=== PATIENT | female | born 1955 | race Caucasian/White ===

== ENCOUNTER 2021-08-19 11:53 | Observation (INO) ==
[2021-08-19 12:00] VITALS: BMI 24.0
[2021-08-19] MEDS ORDERED: NS 1,000 ML IV 1,000 ML IV ONE (13:14)
--- NOTE | 2021-08-19 13:14 | DR.NAUSEAF ---
HPI Time Seen Time Seen by Provider: 08/19/21 13:11 Primary Care Physician Primary Care Physician: DR MONAE Complaints Chief Complaint Doctors Comments: 66 y/o female ill over the past week. + nausea, vomiting, diarrhea. Also with cough, productive of bloody mucous, running low grade temp. Denies abdominal pain. No dizziness or weakness. + smokes. Chief Complaint:: PT C/O 1 WEEK OF FEVER, NAUSEA AND VOMITING, AND STARTED HAVING DIARRHEA TODAY.PT ALSO C/O PRODUCTIVE COUGH WITH BLOODY MUCUS. COVID-19 Coronavirus risk:travel/contact w/high risk person: No Has patient experienced Coronavirus symptoms: Yes Coronavirus symptoms experienced: Fever, Coughing and Shortness of Breath Reviewed Nurses Notes Reviewed: Yes Source History Provided: Patient Mode of Arrival Mode of Arrival: Ambulatory Timing Onset of Chief Complaint: 08/19/21 PMH PMH Past Medical History: Yes Past Medical History Comment: BRAIN ANEURYSM Past Surgical History: Yes Surgical History: Hysterectomy Past Surgical History Comment: STENTS AND COILS X 13 IN BRAIN, CRAINIOTOMY, LANDON L SURGERY Family History History of Family Medical Conditions: Yes Family Medical History: Diabetes Mellitus, Cancer, [place], Coronary Artery Disease and Hypertension Social History Does patient currently use any type of tobacco product: Yes Have you used tobacco products in the last 12 months: Yes Type of Tobacco Use: Cigarettes Does any household member use tobacco: No Alcohol Use: None Do you use any recreational Drugs:: No Lives With: Family Lives Where: Home Travel Risk Coronavirus risk:travel/contact w/high risk person: No Has patient experienced Coronavirus symptoms: Yes Coronavirus symptoms experienced: Fever, Coughing and Shortness of Breath Infectious screening In the last 2 months have you had wt loss of >10#?: NO Have you had fever, night sweats or hemotysis?: No Have you traveled outside the country in the last 6 months?: No Isolation: Droplet ROS Review of Systems Constitutional: Fever Eyes: No Symptoms Reported ENTM: No Symptoms Reported Respiratoy: Productive Cough Cardiovascular: No Symptoms Reported Gastrointestinal/Abdominal: Constipation, Diarrhea and Nausea Genitourinary: No Symptoms Reported Neurological: No Symptoms Reported Musculoskeletal: No Symptoms Reported Integumentary: No Symptoms Reported Hematologic/Lymphatic: No Symptoms Reported Psychiatric: No Symptoms Reported All Other Systems: Reviewed and Negative PE Vital Signs Vitals: Temperature 99.0 F Pulse Rate 81 Respiratory Rate 18 Blood Pressure 137/67 O2 Sat by Pulse Oximetry 91 General Limitations: No Limitations General Appearance: Alert and In No Apparent Distress Head Head Exam: Normal Inspection Eyes Eye exam: Normal Appearance, PERRL and EOMI ENT ENT Exam: Normal Exam Neck Neck Exam: Normal Inspection and Full ROM Chest Chest Inspection: Normal Inspection Respiratory Respiratory Exam: Normal Lung Sounds Bilat; negative Accessory Muscle Use and Respiratory Distress Respiratory Exam: Bilateral: Clear to Auscultation Cardiovascular Cardiovascular Exam: Regular Rate, Normal Rhythm and Normal Heart Sounds Abdominal Exam Abdominal Exam: Normal Inspection, Normal Bowel Sounds and Soft; negative Tenderness, Guarding and Rebound Extremities Extremities Exam: Normal Inspection and Full ROM; negative Edema Back Back Exam: Tenderness (parathoracic muscles) Neurologic Neurological Exam: Alert, Oriented X3 and CN II-XII Intact; negative Motor Sensory Deficit Psychiatric Psychiatric Exam: Normal Affect Skin Skin Exam: Warm and Dry MDM Differential Diagnosis Differential Diagnosis: Considerations may Include:: Gastroenteritis, Pancreatitis and Urinary Tract Infection Differential Diagnosis Comment: viral illness, covid. COURSE Treatment Treatment: Ill past week - N/V, diarrhea and cough. + smokes. W/u initiated. 1700 - CXR with RLL pneumonia changes, potassium low at 2.4. Pt was given IV mo rphine x 2. Given IV azithromycin. Recommend admission for further potassium replacement, IV antibiotics in view of N/V. Dr Soler accetped the admission. ROR Labs Reviewed Laboratory Results Reviewed?: Yes Result Diagrams: 08/19/21 13:35 08/19/21 13:35 Laboratory: WBC 13.6 X10^3/uL (3.6-10.0) H 08/19/21 13:35 RBC 4.00 X10^6/uL (3.5-5.4) 08/19/21 13:35 Hgb 12.9 g/dL (12.0-16.0) 08/19/21 13:35 Hct 37.2 % (36.0-47.0) 08/19/21 13:35 MCV 93.0 fL (80.0-100.0) 08/19/21 13:35 MCH 32.3 pg (27.0-34.0) 08/19/21 13:35 MCHC 34.7 g/dL (33.0-35.0) 08/19/21 13:35 RDW 13.6 % (11.6-16.5) 08/19/21 13:35 Plt Count 419 X10^3/uL (150.0-450.0) 08/19/21 13:35 MPV 7.3 fL (7.4-11.0) L 08/19/21 13:35 Neut % (Auto) 84.6 % (42.0-75.0) H 08/19/21 13:35 Lymph % (Auto) 10.0 % (21.0-51.0) L 08/19/21 13:35 [place] % (Auto) 4.8 % (0.0-13.0) 08/19/21 13:35 Eos % (Auto) 0.1 % (0.9-2.9) L 08/19/21 13:35 Baso % (Auto) 0.5 % (0.2-1.0) 08/19/21 13:35 Neut # (Auto) 11.5 x10^3/uL (2.2-4.8) H 08/19/21 13:35 Lymph # (Auto) 1.4 X10^3/uL (1.3-2.9) 08/19/21 13:35 [place] # (Auto) 0.7 x10^3/uL (0.3-0.8) 08/19/21 13:35 Eos # (Auto) 0.0 x10^3/uL (0.0-0.2) 08/19/21 13:35 Baso # (Auto) 0.1 X10^3/uL (0.0-0.1) 08/19/21 13:35 Absolute Nucleated RBC 0.0 /100WBC 08/19/21 13:35 Sodium 139 mmol/L (136-145) 08/19/21 13:35 Corrected Sodium TNP 08/19/21 13:35 Potassium 2.4 mmol/L (3.5-5.1) L* 08/19/21 13:35 Chloride 97 mmol/L (98-107) L 08/19/21 13:35 Carbon Dioxide 33.1 mmol/L (21-32) H 08/19/21 13:35 BUN 6 mg/dL (7-18) L 08/19/21 13:35 Creatinine 0.73 mg/dL (0.55-1.02) 08/19/21 13:35 Est GFR (MDRD) Af Amer > 60 (>60) 08/19/21 13:35 Est GFR (MDRD) Non-Af > 60 (>60) 08/19/21 13:35 Glucose 102 mg/dL (65-99) H 08/19/21 13:35 Calcium 8.9 mg/dL (8.5-10.1) 08/19/21 13:35 Corrected Calcium 10.2 mg/dL (8.5-10.1) H 08/19/21 13:35 Total Bilirubin 0.50 mg/dL (0.2-1.0) 08/19/21 13:35 AST 18 Units/L (15-37) 08/19/21 13:35 ALT 21 Units/L (12-78) 08/19/21 13:35 Alkaline Phosphatase 59 Units/L (46-116) 08/19/21 13:35 Creatine Kinase 72 Units/L (26-192) 08/19/21 13:35 CK-MB (CK-2) < 1.0 ng/mL (0-4.0) 08/19/21 13:35 CK/CKMB % Calc 1.4 % (<4) 08/19/21 13:35 Troponin I < 0.02 ng/mL (0-1.5) 08/19/21 13:35 Total Protein 8.5 g/dL (6.4-8.2) H 08/19/21 13:35 Albumin 2.4 g/dL (3.4-5.0) L 08/19/21 13:35 Globulin 6.1 g/dL (2.5-4.5) H 08/19/21 13:35 Albumin/Globulin Ratio 0.4 Ratio (1.1-2.1) L 08/19/21 13:35 Lipase 95 Units/L (73-393) 08/19/21 13:35 Specimen Type Clean catch urine 08/19/21 14:48 Urine Color Straw (YELLOW) 08/19/21 14:48 Urine Appearance Clear (CLEAR) 08/19/21 14:48 Urine pH 8.0 (5.0 - 8.0) 08/19/21 14:48 Ur Specific [place] 1.015 (1.000-1.030) 08/19/21 14:48 Urine Protein Negative (NEGATIVE) 08/19/21 14:48 Urine Glucose (UA) Negative (NEGATIVE) 08/19/21 14:48 Urine Ketones Negative (NEGATIVE) 08/19/21 14:48 Urine Occult Blood 1+ (NEGATIVE) 08/19/21 14:48 Urine Nitrite Negative (NEGATIVE) 08/19/21 14:48 Urine Bilirubin Negative (NEGATIVE) 08/19/21 14:48 Urine Urobilinogen Normal (NORMAL) 08/19/21 14:48 Ur Leukocyte Esterase Negative (NEGATIVE) 08/19/21 14:48 Urine RBC 0-2 /HPF (0-3) 08/19/21 14:48 Urine WBC 0-2 /HPF (0-5) 08/19/21 14:48 Ur Squamous Epith Cells Moderate /HPF (NEGATIVE) 08/19/21 14:48 Urine Bacteria Trace /HPF (NEGATIVE) 08/19/21 14:48 Ur Culture Indicated? No/not indicated 08/19/21 14:48 SARS-CoV-2 (PCR) Negative (NEGATIVE) 08/19/21 13:55 Influenza Type A (PCR) Negative (NEGATIVE) 08/19/21 13:55 Influenza Type B (PCR) Negative (NEGATIVE) 08/19/21 13:55 RSV (PCR) Negative (NEGATIVE) 08/19/21 13:55 Other Results Comments: K 2.4 XRAY XRAY Interpreted by: Both X-ray Results: Concerning for RLL infiltrate. Opioid Opioid Risk Tool Age (Dami box if 16-45): No History of Preadolescent Sexual Abuse: No Total: 0 Total Score Risk Category: Low Risk Copyright: Ayan ARNOLD predicting aberrant behaviors Diagnosis Discharge Problem: Acute hypokalemia RLL pneumonia Qualifiers: Pneumonia type: due to unspecified organism Qualified Code(s): J18.9 - Pneumonia, unspecified organism
[2021-08-19] MEDS ORDERED: ZOFRAN INJ 4 MG VIAL IVP ONE (13:15)
[2021-08-19] MEDS ORDERED: ZOFRAN INJ 4 MG VIAL ONE (13:38)
[2021-08-19 13:48] LABS: BASOPHILS # (AUTO) 0.1 X10^3/uL (0.0-0.1); BASOPHILS % (AUTO) 0.5 % (0.2-1.0); EOSINOPHILS % (AUTO) 0.1 % (0.9-2.9); HEMATOCRIT 37.2 % (36.0-47.0); HEMOGLOBIN 12.9 g/dL (12.0-16.0); LYMPHOCYTES # (AUTO) 1.4 X10^3/uL (1.3-2.9); MEAN CORPUSCULAR HEMOGLOBIN 32.3 pg (27.0-34.0); MEAN CORPUSCULAR HGB CONC 34.7 g/dL (33.0-35.0); MEAN PLATELET VOLUME 7.3 fL (7.4-11.0); MONOCYTES # (AUTO) 0.7 x10^3/uL (0.3-0.8); MONOCYTES % (AUTO) 4.8 % (0.0-13.0); NEUTROPHILS # (AUTO) 11.5 x10^3/uL (2.2-4.8); NEUTROPHILS % (AUTO) 84.6 % (42.0-75.0); PLATELET COUNT 419 X10^3/uL (150.0-450.0); RED CELL DISTRIBUTION WIDTH 13.6 % (11.6-16.5); WHITE BLOOD COUNT 13.6 X10^3/uL (3.6-10.0)
[2021-08-19] MEDS ORDERED: MORPHINE SULFATE INJ 4 MG IVP ONE ×2 (14:01→16:42)
[2021-08-19] MEDS ORDERED: MORPHINE SULFATE INJ 4 MG ONE ×2 (14:08→16:46)
[2021-08-19 14:10] LABS: ALANINE AMINOTRANSFERASE 21 Units/L (12-78); ALBUMIN 2.4 g/dL (3.4-5.0); ALKALINE PHOSPHATASE 59 Units/L (46-116); ASPARTATE AMINO TRANSFERASE 18 Units/L (15-37); BLOOD UREA NITROGEN 6 mg/dL (7-18); CALCIUM 8.9 mg/dL (8.5-10.1); CARBON DIOXIDE 33.1 mmol/L (21-32); CHLORIDE 97 mmol/L (98-107); CKMB % 1.4 % (<4); COR CA(FOR HYPOALB) 10.2 mg/dL (8.5-10.1); CREATINE KINASE 72 Units/L (26-192); CREATINE KINASE MB < 1.0 ng/mL (0-4.0); CREATININE 0.73 mg/dL (0.55-1.02); LIPASE 95 Units/L (73-393); SODIUM 139 mmol/L (136-145); TOTAL PROTEIN 8.5 g/dL (6.4-8.2); TROPONIN I < 0.02 ng/mL (0-1.5); eGFR NON BLACK RACES > 60 (>60)
[2021-08-19 14:56] LABS: BILIRUBIN,URINE NEGATIVE (NEGATIVE); BLOOD/HEMOGLOBIN,URINE 1+ (NEGATIVE); GLUCOSE, URINE NEGATIVE (NEGATIVE); KETONES,URINE NEGATIVE (NEGATIVE); LEUKOCYTE ESTERASE ,URINE NEGATIVE (NEGATIVE); NITRITES,URINE NEGATIVE (NEGATIVE); PROTEIN,URINE NEGATIVE (NEGATIVE); UROBILINOGEN,URINE NORMAL (NORMAL)
[2021-08-19 15:02] LABS: APPEARANCE,URINE CLEAR (CLEAR); COLOR,URINE STRAW (YELLOW)
[2021-08-19 15:03] LABS: BACTERIA,URINE TRACE /HPF (NEGATIVE); RBC,URINE 0-2 /HPF (0-3); SQUAMOUS EPITHELIAL CELL,UR MODERATE /HPF (NEGATIVE)
--- NOTE | 2021-08-19 15:39 | RAD ---
HISTORYNAUSEA, VOMITING, COUGH BRAIN ANEURYSM, STENTS AND COILS X 13, CRAINEOTOMY, BOWEL, HTNSTUDYCHEST, 1 VIEWCOMPARISONNoneFINDINGSThe trachea is midline. The cardiac silhouette is unremarkable. There is an alveolar infiltrate in the right lung base consistent with pneumonia. The remainder the lungs are clear. The bony thorax is unremarkable other than lower C-spine ACDF.IMPRESSIONAlveolar infiltrate right costophrenic angle consistent with pneumonia. Recommend radiographic follow-up.Electronically signed by: BALDEV LYNNE (Aug 19, 2021 15:38:19)
[2021-08-19] MEDS ORDERED: K-RIDER 10 MEQ/NS 100 ML 10 MEQ/100 ML BAG IV ONE ×2 (16:42→16:46)
[2021-08-19] MEDS ORDERED: POTASSIUM CHLORIDE LIQ 20 MEQ UDC PO ONE (16:42)
[2021-08-19] MEDS ORDERED: POTASSIUM CHLORIDE LIQ 20 MEQ UDC ONE (17:21)
[2021-08-19] MEDS ORDERED: KLOR-CON PO PRN (19:19)
[2021-08-19] MEDS ORDERED: POTASSIUM CHL 60 MEQ/NS 0.45% 500 ML IV PRN (19:19)
[2021-08-19] MEDS ORDERED: K-RIDER 10 MEQ/NS 100 ML 10 MEQ/100 ML BAG IV PRN (19:19)
[2021-08-19] MEDS ORDERED: MICRO K EXTEN CAP 10 MEQ PO PRN (19:19)
[2021-08-19] MEDS ORDERED: MAGNESIUM SULFATE 1 GRAM/100 mL PREMIX 1 G/100 ML BAG IV PRN (19:19)
[2021-08-19] MEDS ORDERED: POTASSIUM CHLORIDE LIQ 20 MEQ UDC PO PRN (19:19)
[2021-08-19] MEDS ORDERED: POTASSIUM CHL 40 MEQ/NS 0.45% 500 ML IV PRN (19:19)
[2021-08-19] MEDS: ZITHROMAX INJ 500 MG VIAL 500 MG in NS 250 ML IV 250 ML IV SCH (20:15)
[2021-08-19] MEDS: PULMICORT NEB TX 0.5 MG NEB SCH (20:35)
[2021-08-19] MEDS: DUONEB 0.5 MG/3 MG (3 mL) NEB SCH (20:35)
[2021-08-19] MEDS: MORPHINE SULFATE INJ 4 MG IVP PRN (21:02)
[2021-08-19] MEDS: K-DUR TAB 20 MEQ PO PRN (21:56)
[2021-08-20] MEDS: MORPHINE SULFATE INJ 4 MG IVP PRN ×5 (00:55→19:26)
[2021-08-20 05:22] LABS: BASOPHILS # (AUTO) 0.1 X10^3/uL (0.0-0.1); BASOPHILS % (AUTO) 0.6 % (0.2-1.0); EOSINOPHILS # (AUTO) 0.1 x10^3/uL (0.0-0.2); EOSINOPHILS % (AUTO) 1.1 % (0.9-2.9); HEMATOCRIT 33.6 % (36.0-47.0); HEMOGLOBIN 11.5 g/dL (12.0-16.0); LYMPHOCYTES # (AUTO) 1.5 X10^3/uL (1.3-2.9); MEAN CORPUSCULAR HEMOGLOBIN 32.1 pg (27.0-34.0); MEAN CORPUSCULAR HGB CONC 34.1 g/dL (33.0-35.0); MEAN CORPUSCULAR VOLUME 94.2 fL (80.0-100.0); MEAN PLATELET VOLUME 7.4 fL (7.4-11.0); MONOCYTES # (AUTO) 0.7 x10^3/uL (0.3-0.8); MONOCYTES % (AUTO) 7.1 % (0.0-13.0); NEUTROPHILS # (AUTO) 7.7 x10^3/uL (2.2-4.8); NEUTROPHILS % (AUTO) 76.2 % (42.0-75.0); PLATELET COUNT 370 X10^3/uL (150.0-450.0); RED BLOOD COUNT 3.57 X10^6/uL (3.5-5.4); RED CELL DISTRIBUTION WIDTH 13.6 % (11.6-16.5); WHITE BLOOD COUNT 10.1 X10^3/uL (3.6-10.0)
[2021-08-20 05:51] LABS: ALANINE AMINOTRANSFERASE 18 Units/L (12-78); ALBUMIN 1.9 g/dL (3.4-5.0); ALKALINE PHOSPHATASE 47 Units/L (46-116); ASPARTATE AMINO TRANSFERASE 19 Units/L (15-37); BLOOD UREA NITROGEN 5 mg/dL (7-18); CALCIUM 8.1 mg/dL (8.5-10.1); CARBON DIOXIDE 30.5 mmol/L (21-32); CHLORIDE 102 mmol/L (98-107); COR CA(FOR HYPOALB) 9.8 mg/dL (8.5-10.1); COR NA(FOR HYPERGLY) 141 mmol/L (136-145); CREATININE 0.78 mg/dL (0.55-1.02); MAGNESIUM 2.3 mg/dL (1.7-2.9); SODIUM 140 mmol/L (136-145); TOTAL PROTEIN 7.2 g/dL (6.4-8.2); eGFR NON BLACK RACES > 60 (>60)
[2021-08-20] MEDS: K-DUR TAB 20 MEQ PO PRN ×2 (06:12→16:33)
--- NOTE | 2021-08-20 07:49 | RAD ---
HISTORYPneumoniaSTUDYAP [id number] ent and stable airspace disease right lower lobe. Heart and lungs normal and unchanged otherwise. No new abnormality identified.IMPRESSIONFindings remain consistent with a right lower lobe pneumonia. No change.Electronically signed by: FRENCH PARDO (Aug 20, 2021 07:48:13)
[2021-08-20] MEDS ORDERED: TUSSIONEX PENNKINETIC SUSP PO PRN (07:54)
--- NOTE | 2021-08-20 08:59 | DR.H&P ---
H&P History & Physical for Day of: H&P Date: 08/19/21 Chief Complaint Chief Complaint: Cough with bloody mucus Allergies Allergies Allergy/AdvReac Type Severity Reaction Status Date / Time aspirin Allergy Verified 08/19/21 11:54 codeine Allergy Verified 08/19/21 11:54 Penicillins Allergy Verified 08/19/21 11:54 History of Present Illness History of Present Illness: This is a 66-year-old female with a 1-week history of fever, nausea and vomiting. Now with diarrhea onset today. Also having a productive cough with bloody sputum now. Reports low grade fever and cough. CXR in ED shows a RLL infiltrate consistent with CAP. Labs in ED show Hypokalemia as well. Past Medical History Additional Medical History: Brain Aneurysm Past Surgical History Surgical History: Hysterectomy Additional Surgical History: Stents and coils x 13 in brain/ Craniotomy/ Bowel Surgery Family History Family Medical History: Diabetes Mellitus, Cancer, [place], Coronary Artery Disease and Hypertension Social History Does patient currently use any type of tobacco product: Yes Have you used tobacco products in the last 12 months: Yes Type of Tobacco Use: Cigarettes Does any household member use tobacco: No Alcohol Use: None Drug Use: Prescription Drugs Medications Home Medications: aspirin Allergy (Verified 08/19/21 11:54) codeine Allergy (Verified 08/19/21 11:54) Penicillins Allergy (Verified 08/19/21 11:54) Labs Result Diagrams: 08/20/21 05:00 08/20/21 05:00 Labs: Laboratory WBC 10.1 X10^3/uL (3.6-10.0) H 08/20/21 05:00 RBC 3.57 X10^6/uL (3.5-5.4) 08/20/21 05:00 Hgb 11.5 g/dL (12.0-16.0) L 08/20/21 05:00 Hct 33.6 % (36.0-47.0) L 08/20/21 05:00 MCV 94.2 fL (80.0-100.0) 08/20/21 05:00 MCH 32.1 pg (27.0-34.0) 08/20/21 05:00 MCHC 34.1 g/dL (33.0-35.0) 08/20/21 05:00 RDW 13.6 % (11.6-16.5) 08/20/21 05:00 Plt Count 370 X10^3/uL (150.0-450.0) 08/20/21 05:00 MPV 7.4 fL (7.4-11.0) 08/20/21 05:00 Neut % (Auto) 76.2 % (42.0-75.0) H 08/20/21 05:00 Lymph % (Auto) 15.0 % (21.0-51.0) L 08/20/21 05:00 [place] % (Auto) 7.1 % (0.0-13.0) 08/20/21 05:00 Eos % (Auto) 1.1 % (0.9-2.9) 08/20/21 05:00 Baso % (Auto) 0.6 % (0.2-1.0) 08/20/21 05:00 Neut # (Auto) 7.7 x10^3/uL (2.2-4.8) H 08/20/21 05:00 Lymph # (Auto) 1.5 X10^3/uL (1.3-2.9) 08/20/21 05:00 [place] # (Auto) 0.7 x10^3/uL (0.3-0.8) 08/20/21 05:00 Eos # (Auto) 0.1 x10^3/uL (0.0-0.2) 08/20/21 05:00 Baso # (Auto) 0.1 X10^3/uL (0.0-0.1) 08/20/21 05:00 Absolute Nucleated RBC 0.0 /100WBC 08/20/21 05:00 Sodium 140 mmol/L (136-145) 08/20/21 05:00 Corrected Sodium 141 mmol/L (136-145) 08/20/21 05:00 Potassium 3.0 mmol/L (3.5-5.1) L* 08/20/21 05:00 Chloride 102 mmol/L (98-107) 08/20/21 05:00 Carbon Dioxide 30.5 mmol/L (21-32) 08/20/21 05:00 BUN 5 mg/dL (7-18) L 08/20/21 05:00 Creatinine 0.78 mg/dL (0.55-1.02) 08/20/21 05:00 Est GFR (MDRD) Af Amer > 60 (>60) 08/20/21 05:00 Est GFR (MDRD) Non-Af > 60 (>60) 08/20/21 05:00 Glucose 136 mg/dL (65-99) H 08/20/21 05:00 Calcium 8.1 mg/dL (8.5-10.1) L 08/20/21 05:00 Corrected Calcium 9.8 mg/dL (8.5-10.1) 08/20/21 05:00 Magnesium 2.3 mg/dL (1.7-2.9) 08/20/21 05:00 Total Bilirubin 0.30 mg/dL (0.2-1.0) 08/20/21 05:00 AST 19 Units/L (15-37) 08/20/21 05:00 ALT 18 Units/L (12-78) 08/20/21 05:00 Alkaline Phosphatase 47 Units/L (46-116) 08/20/21 05:00 Creatine Kinase 72 Units/L (26-192) 08/19/21 13:35 CK-MB (CK-2) < 1.0 ng/mL (0-4.0) 08/19/21 13:35 CK/CKMB % Calc 1.4 % (<4) 08/19/21 13:35 Troponin I < 0.02 ng/mL (0-1.5) 08/19/21 13:35 Total Protein 7.2 g/dL (6.4-8.2) 08/20/21 05:00 Albumin 1.9 g/dL (3.4-5.0) L 08/20/21 05:00 Globulin 5.3 g/dL (2.5-4.5) H 08/20/21 05:00 Albumin/Globulin Ratio 0.4 Ratio (1.1-2.1) L 08/20/21 05:00 Lipase 95 Units/L (73-393) 08/19/21 13:35 Specimen Type Clean catch urine 08/19/21 14:48 Urine Color Straw (YELLOW) 08/19/21 14:48 Urine Appearance Clear (CLEAR) 08/19/21 14:48 Urine pH 8.0 (5.0 - 8.0) 08/19/21 14:48 Ur Specific [place] 1.015 (1.000-1.030) 08/19/21 14:48 Urine Protein Negative (NEGATIVE) 08/19/21 14:48 Urine Glucose (UA) Negative (NEGATIVE) 08/19/21 14:48 Urine Ketones Negative (NEGATIVE) 08/19/21 14:48 Urine Occult Blood 1+ (NEGATIVE) 08/19/21 14:48 Urine Nitrite Negative (NEGATIVE) 08/19/21 14:48 Urine Bilirubin Negative (NEGATIVE) 08/19/21 14:48 Urine Urobilinogen Normal (NORMAL) 08/19/21 14:48 Ur Leukocyte Esterase Negative (NEGATIVE) 08/19/21 14:48 Urine RBC 0-2 /HPF (0-3) 08/19/21 14:48 Urine WBC 0-2 /HPF (0-5) 08/19/21 14:48 Ur Squamous Epith Cells Moderate /HPF (NEGATIVE) 08/19/21 14:48 Urine Bacteria Trace /HPF (NEGATIVE) 08/19/21 14:48 Ur Culture Indicated? No/not indicated 08/19/21 14:48 SARS-CoV-2 (PCR) Negative (NEGATIVE) 08/19/21 13:55 Influenza Type A (PCR) Negative (NEGATIVE) 08/19/21 13:55 Influenza Type B (PCR) Negative (NEGATIVE) 08/19/21 13:55 RSV (PCR) Negative (NEGATIVE) 08/19/21 13:55 Review of Systems Constitutional: Fever, Chills, Weakness and Malaise Eyes: No Symptoms Reported ENT: No Symptoms Reported Respiratory: Cough, Hemoptysis and Sputum Cardiovascular: No Symptoms Reported Gastrointestinal: Nausea, Vomiting and Diarrhea Genitourinary: No Symptoms Reported Musculoskeletal: No Symptoms Reported Skin: No Symptoms Reported Neurological: Weakness Physical Exam Vital Signs: Temperature 98.8 F Pulse Rate [Left Radial] 74 Pulse Rate 62 Respiratory Rate 22 Blood Pressure [Left Arm] 113/55 Blood Pressure 137/67 O2 Sat by Pulse Oximetry 94 Oriented: Normal Eyes: Normal Ear: Normal Nose: Normal Throat: Normal Respiratory: RLL Rhonchi Cardiovascular: Normal : Normal Auscultation: Bowel Sounds: Normal Palpation: Normal Tenderness: Normal Skin: Normal Musculoskeletal: Normal Psychiatric: Normal Mood Description: Calm Affect: Normal Speech Pattern: Clear Assessment/Plan (1) RLL pneumonia: Qualifiers: Pneumonia type: due to unspecified organism Qualified Code(s): J18.9 - Pneumonia, unspecified organism Status: Acute Plan: Pneumonia protocol. IV Zithromax. (2) Acute hypokalemia: Status: Acute Plan: Potassium replacement protocol. Review H&P Reviewed: Yes Patient was examined?: Yes
[2021-08-20] MEDS: PULMICORT NEB TX 0.5 MG NEB SCH ×2 (09:10→20:04)
[2021-08-20] MEDS: DUONEB 0.5 MG/3 MG (3 mL) NEB SCH ×4 (09:10→20:04)
[2021-08-20] MEDS: FORTAZ or TAZICEF VIAL INJ 1 G in NS 100 ML IV + SPIKE MINIBAG* 100 ML IV SCH ×3 (10:23→21:12)
[2021-08-20] MEDS: ZITHROMAX INJ 500 MG VIAL 500 MG in NS 250 ML IV 250 ML IV SCH ×2 (12:00→15:51)
--- NOTE | 2021-08-20 12:37 | PCM.PROG ---
Progress Note Progress Note for Day of Date of Exam: 08/20/21 Past Medical Family Social History Allergies: Allergies aspirin Allergy (Verified 08/19/21 11:54) codeine Allergy (Verified 08/19/21 11:54) Penicillins Allergy (Verified 08/19/21 11:54) Review of Systems ROS: No change since H&P Vital Signs and I&O's Vital Signs: Temperature 98.8 F Pulse Rate [Left Radial] 74 Pulse Rate 62 Respiratory Rate 18 Blood Pressure [Left Arm] 113/55 Blood Pressure 137/67 O2 Sat by Pulse Oximetry 94 Intake and Output: Intake & Output 08/18/21 08/19/21 08/20/21 08/21/21 11:59 11:59 11:59 11:59 Intake Total 856 / 856 Balance 856 / 856 Physical Exam Oriented: Normal Eyes: Normal Ear: Normal Nose: Normal Throat: Normal Respiratory: Right and Rhonchi Cardiovascular: Normal : Normal Auscultation: Bowel Sounds: Normal Palpation: Normal Tenderness: Normal Skin: Normal Musculoskeletal: Normal Psychiatric: Normal Mood Description: Calm Affect: Normal Speech Pattern: Clear Laboratory and Diagnostics Result Diagrams: 08/20/21 05:00 08/20/21 05:00 Labs: 08/19/21 18:43 Sputum - Expectorated Sputum Sputum Culture - Preliminary 08/19/21 18:43 Sputum - Expectorated Sputum - Final Laboratory WBC 10.1 X10^3/uL (3.6-10.0) H 08/20/21 05:00 RBC 3.57 X10^6/uL (3.5-5.4) 08/20/21 05:00 Hgb 11.5 g/dL (12.0-16.0) L 08/20/21 05:00 Hct 33.6 % (36.0-47.0) L 08/20/21 05:00 MCV 94.2 fL (80.0-100.0) 08/20/21 05:00 MCH 32.1 pg (27.0-34.0) 08/20/21 05:00 MCHC 34.1 g/dL (33.0-35.0) 08/20/21 05:00 RDW 13.6 % (11.6-16.5) 08/20/21 05:00 Plt Count 370 X10^3/uL (150.0-450.0) 08/20/21 05:00 MPV 7.4 fL (7.4-11.0) 08/20/21 05:00 Neut % (Auto) 76.2 % (42.0-75.0) H 08/20/21 05:00 Lymph % (Auto) 15.0 % (21.0-51.0) L 08/20/21 05:00 [place] % (Auto) 7.1 % (0.0-13.0) 08/20/21 05:00 Eos % (Auto) 1.1 % (0.9-2.9) 08/20/21 05:00 Baso % (Auto) 0.6 % (0.2-1.0) 08/20/21 05:00 Neut # (Auto) 7.7 x10^3/uL (2.2-4.8) H 08/20/21 05:00 Lymph # (Auto) 1.5 X10^3/uL (1.3-2.9) 08/20/21 05:00 [place] # (Auto) 0.7 x10^3/uL (0.3-0.8) 08/20/21 05:00 Eos # (Auto) 0.1 x10^3/uL (0.0-0.2) 08/20/21 05:00 Baso # (Auto) 0.1 X10^3/uL (0.0-0.1) 08/20/21 05:00 Absolute Nucleated RBC 0.0 /100WBC 08/20/21 05:00 Sodium 140 mmol/L (136-145) 08/20/21 05:00 Corrected Sodium 141 mmol/L (136-145) 08/20/21 05:00 Potassium 3.0 mmol/L (3.5-5.1) L* 08/20/21 05:00 Chloride 102 mmol/L (98-107) 08/20/21 05:00 Carbon Dioxide 30.5 mmol/L (21-32) 08/20/21 05:00 BUN 5 mg/dL (7-18) L 08/20/21 05:00 Creatinine 0.78 mg/dL (0.55-1.02) 08/20/21 05:00 Est GFR (MDRD) Af Amer > 60 (>60) 08/20/21 05:00 Est GFR (MDRD) Non-Af > 60 (>60) 08/20/21 05:00 Glucose 136 mg/dL (65-99) H 08/20/21 05:00 Calcium 8.1 mg/dL (8.5-10.1) L 08/20/21 05:00 Corrected Calcium 9.8 mg/dL (8.5-10.1) 08/20/21 05:00 Magnesium 2.3 mg/dL (1.7-2.9) 08/20/21 05:00 Total Bilirubin 0.30 mg/dL (0.2-1.0) 08/20/21 05:00 AST 19 Units/L (15-37) 08/20/21 05:00 ALT 18 Units/L (12-78) 08/20/21 05:00 Alkaline Phosphatase 47 Units/L (46-116) 08/20/21 05:00 Creatine Kinase 72 Units/L (26-192) 08/19/21 13:35 CK-MB (CK-2) < 1.0 ng/mL (0-4.0) 08/19/21 13:35 CK/CKMB % Calc 1.4 % (<4) 08/19/21 13:35 Troponin I < 0.02 ng/mL (0-1.5) 08/19/21 13:35 Total Protein 7.2 g/dL (6.4-8.2) 08/20/21 05:00 Albumin 1.9 g/dL (3.4-5.0) L 08/20/21 05:00 Globulin 5.3 g/dL (2.5-4.5) H 08/20/21 05:00 Albumin/Globulin Ratio 0.4 Ratio (1.1-2.1) L 08/20/21 05:00 Lipase 95 Units/L (73-393) 08/19/21 13:35 Specimen Type Clean catch urine 08/19/21 14:48 Urine Color Straw (YELLOW) 08/19/21 14:48 Urine Appearance Clear (CLEAR) 08/19/21 14:48 Urine pH 8.0 (5.0 - 8.0) 08/19/21 14:48 Ur Specific [place] 1.015 (1.000-1.030) 08/19/21 14:48 Urine Protein Negative (NEGATIVE) 08/19/21 14:48 Urine Glucose (UA) Negative (NEGATIVE) 08/19/21 14:48 Urine Ketones Negative (NEGATIVE) 08/19/21 14:48 Urine Occult Blood 1+ (NEGATIVE) 08/19/21 14:48 Urine Nitrite Negative (NEGATIVE) 08/19/21 14:48 Urine Bilirubin Negative (NEGATIVE) 08/19/21 14:48 Urine Urobilinogen Normal (NORMAL) 08/19/21 14:48 Ur Leukocyte Esterase Negative (NEGATIVE) 08/19/21 14:48 Urine RBC 0-2 /HPF (0-3) 08/19/21 14:48 Urine WBC 0-2 /HPF (0-5) 08/19/21 14:48 Ur Squamous Epith Cells Moderate /HPF (NEGATIVE) 08/19/21 14:48 Urine Bacteria Trace /HPF (NEGATIVE) 08/19/21 14:48 Ur Culture Indicated? No/not indicated 08/19/21 14:48 SARS-CoV-2 (PCR) Negative (NEGATIVE) 08/19/21 13:55 Influenza Type A (PCR) Negative (NEGATIVE) 08/19/21 13:55 Influenza Type B (PCR) Negative (NEGATIVE) 08/19/21 13:55 RSV (PCR) Negative (NEGATIVE) 08/19/21 13:55 Radiology Reviewed: Yes Plan (1) RLL pneumonia: Status: Acute Qualifiers: Pneumonia type: due to unspecified organism Qualified Code(s): J18.9 - Pneumonia, unspecified organism Narrative Support Text: Sputum Gram stain shows few GPC and many WBC's. Plan: Pneumonia protocol. IV Zithromax. Adding IV Fortaz this am. CXR in am. (2) Acute hypokalemia: Status: Acute Narrative Support Text: Potassium improved to 3.0 but still low. Mg level is normal. Plan: Potassium replacement protocol.
[2021-08-20] MEDS: ROXICODONE TAB 5 MG PO PRN (15:59)
[2021-08-20] MEDS ORDERED: PULMICORT NEB TX 0.5 MG NEB ONE (19:15)
[2021-08-20] MEDS: AMBIEN PO SCH (20:57)
[2021-08-21] MEDS: ROXICODONE TAB 5 MG PO PRN ×3 (00:05→18:03)
[2021-08-21] MEDS: MORPHINE SULFATE INJ 4 MG IVP PRN ×3 (03:46→23:05)
[2021-08-21 04:53] LABS: BASOPHILS # (AUTO) 0.1 X10^3/uL (0.0-0.1); BASOPHILS % (AUTO) 0.8 % (0.2-1.0); EOSINOPHILS # (AUTO) 0.3 x10^3/uL (0.0-0.2); EOSINOPHILS % (AUTO) 2.8 % (0.9-2.9); HEMATOCRIT 32.6 % (36.0-47.0); HEMOGLOBIN 11.1 g/dL (12.0-16.0); LYMPHOCYTES # (AUTO) 2.2 X10^3/uL (1.3-2.9); LYMPHOCYTES % (AUTO) 20.5 % (21.0-51.0); MEAN CORPUSCULAR HGB CONC 33.9 g/dL (33.0-35.0); MEAN CORPUSCULAR VOLUME 94.4 fL (80.0-100.0); MEAN PLATELET VOLUME 7.7 fL (7.4-11.0); MONOCYTES # (AUTO) 0.8 x10^3/uL (0.3-0.8); MONOCYTES % (AUTO) 7.9 % (0.0-13.0); NEUTROPHILS # (AUTO) 7.2 x10^3/uL (2.2-4.8); PLATELET COUNT 371 X10^3/uL (150.0-450.0); RED BLOOD COUNT 3.46 X10^6/uL (3.5-5.4); RED CELL DISTRIBUTION WIDTH 14.1 % (11.6-16.5); WHITE BLOOD COUNT 10.5 X10^3/uL (3.6-10.0)
[2021-08-21 05:14] LABS: ALANINE AMINOTRANSFERASE 28 Units/L (12-78); ALBUMIN 1.9 g/dL (3.4-5.0); ALKALINE PHOSPHATASE 46 Units/L (46-116); ASPARTATE AMINO TRANSFERASE 29 Units/L (15-37); BLOOD UREA NITROGEN 8 mg/dL (7-18); CALCIUM 8.2 mg/dL (8.5-10.1); CARBON DIOXIDE 26.8 mmol/L (21-32); CHLORIDE 103 mmol/L (98-107); COR CA(FOR HYPOALB) 9.9 mg/dL (8.5-10.1); COR NA(FOR HYPERGLY) 136 mmol/L (136-145); CREATININE 0.75 mg/dL (0.55-1.02); MAGNESIUM 2.3 mg/dL (1.7-2.9); SODIUM 135 mmol/L (136-145); TOTAL PROTEIN 7.1 g/dL (6.4-8.2); eGFR NON BLACK RACES > 60 (>60)
[2021-08-21] MEDS: FORTAZ or TAZICEF VIAL INJ 1 G in NS 100 ML IV + SPIKE MINIBAG* 100 ML IV SCH ×3 (05:28→21:08)
[2021-08-21] MEDS: ZITHROMAX INJ 500 MG VIAL 500 MG in NS 250 ML IV 250 ML IV SCH (08:00)
[2021-08-21] MEDS: DUONEB 0.5 MG/3 MG (3 mL) NEB SCH ×4 (08:37→20:15)
[2021-08-21] MEDS: PULMICORT NEB TX 0.5 MG NEB SCH ×2 (08:37→20:15)
[2021-08-21] MEDS ORDERED: SOLU-Medrol 125 MG VIAL IVP NR (09:00)
--- NOTE | 2021-08-21 12:25 | PCM.PROG ---
Progress Note Progress Note for Day of Date of Exam: 08/21/21 Subjective Subjective: Patient feels better this am but still hurts with coughing. Past Medical Family Social History Past Med/Fam/Surg Hx: No changes since H&P Allergies: Allergies aspirin Allergy (Verified 08/19/21 11:54) codeine Allergy (Verified 08/19/21 11:54) Penicillins Allergy (Verified 08/19/21 11:54) Review of Systems ROS: No change since H&P Vital Signs and I&O's Vital Signs: Temperature 98.3 F Pulse Rate [Left Radial] 69 Pulse Rate 71 Respiratory Rate 24 Blood Pressure [Left Arm] 133/65 Blood Pressure 137/67 O2 Sat by Pulse Oximetry 94 Intake and Output: Intake & Output 08/19/21 08/20/21 08/21/21 08/22/21 11:59 11:59 11:59 11:59 Intake Total 856 / 856 2281 / 2281 Balance 856 / 856 2281 / 2281 Physical Exam Oriented: Normal Eyes: Normal Ear: Normal Nose: Normal Throat: Normal Respiratory: Right and Rhonchi Cardiovascular: Normal : Normal Auscultation: Bowel Sounds: Normal Tenderness: Normal Skin: Normal Musculoskeletal: Normal Psychiatric: Normal Mood Description: Calm Affect: Normal Speech Pattern: Clear and Appropriate Laboratory and Diagnostics Result Diagrams: 08/21/21 04:30 08/21/21 04:30 Labs: 08/19/21 18:43 Sputum - Expectorated Sputum Sputum Culture - Final 08/19/21 18:43 Sputum - Expectorated Sputum - Final Laboratory WBC 10.5 X10^3/uL (3.6-10.0) H 08/21/21 04:30 RBC 3.46 X10^6/uL (3.5-5.4) L 08/21/21 04:30 Hgb 11.1 g/dL (12.0-16.0) L 08/21/21 04:30 Hct 32.6 % (36.0-47.0) L 08/21/21 04:30 MCV 94.4 fL (80.0-100.0) 08/21/21 04:30 MCH 32.0 pg (27.0-34.0) 08/21/21 04:30 MCHC 33.9 g/dL (33.0-35.0) 08/21/21 04:30 RDW 14.1 % (11.6-16.5) 08/21/21 04:30 Plt Count 371 X10^3/uL (150.0-450.0) 08/21/21 04:30 MPV 7.7 fL (7.4-11.0) 08/21/21 04:30 Neut % (Auto) 68.0 % (42.0-75.0) 08/21/21 04:30 Lymph % (Auto) 20.5 % (21.0-51.0) L 08/21/21 04:30 [place] % (Auto) 7.9 % (0.0-13.0) 08/21/21 04:30 Eos % (Auto) 2.8 % (0.9-2.9) 08/21/21 04:30 Baso % (Auto) 0.8 % (0.2-1.0) 08/21/21 04:30 Neut # (Auto) 7.2 x10^3/uL (2.2-4.8) H 08/21/21 04:30 Lymph # (Auto) 2.2 X10^3/uL (1.3-2.9) 08/21/21 04:30 [place] # (Auto) 0.8 x10^3/uL (0.3-0.8) 08/21/21 04:30 Eos # (Auto) 0.3 x10^3/uL (0.0-0.2) H 08/21/21 04:30 Baso # (Auto) 0.1 X10^3/uL (0.0-0.1) 08/21/21 04:30 Absolute Nucleated RBC 0.0 /100WBC 08/21/21 04:30 Sodium 135 mmol/L (136-145) L 08/21/21 04:30 Corrected Sodium 136 mmol/L (136-145) 08/21/21 04:30 Potassium 4.1 mmol/L (3.5-5.1) 08/21/21 04:30 Chloride 103 mmol/L (98-107) 08/21/21 04:30 Carbon Dioxide 26.8 mmol/L (21-32) 08/21/21 04:30 BUN 8 mg/dL (7-18) 08/21/21 04:30 Creatinine 0.75 mg/dL (0.55-1.02) 08/21/21 04:30 Est GFR (MDRD) Af Amer > 60 (>60) 08/21/21 04:30 Est GFR (MDRD) Non-Af > 60 (>60) 08/21/21 04:30 Glucose 124 mg/dL (65-99) H 08/21/21 04:30 Calcium 8.2 mg/dL (8.5-10.1) L 08/21/21 04:30 Corrected Calcium 9.9 mg/dL (8.5-10.1) 08/21/21 04:30 Magnesium 2.3 mg/dL (1.7-2.9) 08/21/21 04:30 Total Bilirubin 0.20 mg/dL (0.2-1.0) 08/21/21 04:30 AST 29 Units/L (15-37) 08/21/21 04:30 ALT 28 Units/L (12-78) 08/21/21 04:30 Alkaline Phosphatase 46 Units/L (46-116) 08/21/21 04:30 Creatine Kinase 72 Units/L (26-192) 08/19/21 13:35 CK-MB (CK-2) < 1.0 ng/mL (0-4.0) 08/19/21 13:35 CK/CKMB % Calc 1.4 % (<4) 08/19/21 13:35 Troponin I < 0.02 ng/mL (0-1.5) 08/19/21 13:35 Total Protein 7.1 g/dL (6.4-8.2) 08/21/21 04:30 Albumin 1.9 g/dL (3.4-5.0) L 08/21/21 04:30 Globulin 5.2 g/dL (2.5-4.5) H 08/21/21 04:30 Albumin/Globulin Ratio 0.4 Ratio (1.1-2.1) L 08/21/21 04:30 Lipase 95 Units/L (73-393) 08/19/21 13:35 Specimen Type Clean catch urine 08/19/21 14:48 Urine Color Straw (YELLOW) 08/19/21 14:48 Urine Appearance Clear (CLEAR) 08/19/21 14:48 Urine pH 8.0 (5.0 - 8.0) 08/19/21 14:48 Ur Specific [place] 1.015 (1.000-1.030) 08/19/21 14:48 Urine Protein Negative (NEGATIVE) 08/19/21 14:48 Urine Glucose (UA) Negative (NEGATIVE) 08/19/21 14:48 Urine Ketones Negative (NEGATIVE) 08/19/21 14:48 Urine Occult Blood 1+ (NEGATIVE) 08/19/21 14:48 Urine Nitrite Negative (NEGATIVE) 08/19/21 14:48 Urine Bilirubin Negative (NEGATIVE) 08/19/21 14:48 Urine Urobilinogen Normal (NORMAL) 08/19/21 14:48 Ur Leukocyte Esterase Negative (NEGATIVE) 08/19/21 14:48 Urine RBC 0-2 /HPF (0-3) 08/19/21 14:48 Urine WBC 0-2 /HPF (0-5) 08/19/21 14:48 Ur Squamous Epith Cells Moderate /HPF (NEGATIVE) 08/19/21 14:48 Urine Bacteria Trace /HPF (NEGATIVE) 08/19/21 14:48 Ur Culture Indicated? No/not indicated 08/19/21 14:48 SARS-CoV-2 (PCR) Negative (NEGATIVE) 08/19/21 13:55 Influenza Type A (PCR) Negative (NEGATIVE) 08/19/21 13:55 Influenza Type B (PCR) Negative (NEGATIVE) 08/19/21 13:55 RSV (PCR) Negative (NEGATIVE) 08/19/21 13:55 Plan (1) RLL pneumonia: Status: Acute Qualifiers: Pneumonia type: due to unspecified organism Qualified Code(s): J18.9 - Pneumonia, unspecified organism Plan: Pneumonia protocol. IV Zithromax. Adding IV Fortaz this am. CXR in am. Plan on discharge home in morning if patient is improved. (2) Acute hypokalemia: Status: Resolved Narrative Support Text: Potassium has normalized. Plan: Potassium replacement protocol.
[2021-08-21] MEDS: SOLU-Medrol 125 MG VIAL IVP SCH (16:42)
[2021-08-21] MEDS: AMBIEN PO SCH (21:08)
[2021-08-22] MEDS: SOLU-Medrol 125 MG VIAL IVP SCH ×2 (01:45→08:14)
[2021-08-22] MEDS: ROXICODONE TAB 5 MG PO PRN ×2 (02:00→09:43)
[2021-08-22] MEDS: MORPHINE SULFATE INJ 4 MG IVP PRN (05:25)
[2021-08-22] MEDS: FORTAZ or TAZICEF VIAL INJ 1 G in NS 100 ML IV + SPIKE MINIBAG* 100 ML IV SCH (05:33)
--- NOTE | 2021-08-22 06:55 | RAD ---
HISTORYFollow-up pneumoniaSTUDYChest AP [id number] t size is normal. Jody are normal. Aorta is calcified. Lungs are mildly hyperinflated. Peripheral right basilar lung infiltrate is unchanged. Remainder of the lung rangel are clear. Minimal right pleural effusion may be present.IMPRESSIONNo change right lower lobe pneumoniaNo change mild hyperinflationSuspect minimal right pleural effusionElectronically signed by: MAGED LAO (Aug 22, 2021 06:53:53)
[2021-08-22 08:04] VITALS: BP 134/62
[2021-08-22] MEDS: ZITHROMAX INJ 500 MG VIAL 500 MG in NS 250 ML IV 250 ML IV SCH (08:14)
[2021-08-22] MEDS: PULMICORT NEB TX 0.5 MG NEB SCH (08:53)
[2021-08-22] MEDS: DUONEB 0.5 MG/3 MG (3 mL) NEB SCH (08:53)
== END 2021-08-22 10:55 | disposition home or self-care (01) ==
LOC: ER 11:53 → MED/SURG 11:53 → OBSVTOIN 16:58 → INTOOBSV 16:58 → MED/SURG 17:50
PROVIDERS: ADMIT Family Medicine; ATTEND Family Medicine
DX: J18.8 Other pneumonia, unspecified organism; E87.6 Hypokalemia; Z20.822 Contact with and (suspected) exposure to COVID-19